=== PATIENT | male | born 2000 | race Caucasian/White ===

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

== ENCOUNTER 2023-12-14 09:55 | Inpatient (IN) | payer BC, OTHER ==
[~2023-12-14] VITALS: Ht 195.6 cm; Wt 80.0 kg
[~2023-12-14 09:55] MED LIST changes: +AZIT-12 PO; -E-Z-GAS II EFFERVESCENT PACKET (SODIUM BICARB./CITRIC ACID/SIMETHICONE) As Ordered; -E-Z-HD 98% w/w 340GM SUSP BTL As Ordered; -E-Z-PAQUE 96% w/w SUSP 176GM BTL As Ordered; +MOTR200T44 PO; +REGL10TA6 PO; +ZOFR8TAB22 PO; +[UNRECOGNIZED DRUG - OTHER] PO
[2023-12-14 10:53] LABS: BASO # 0.1 10^3/uL (0.0-0.2); BASO % 0.7 % (0.0-1.0); EOS # 0.1 10^3/uL (0.0-0.5); EOS % 1.2 % (0.0-3.0); HEMATOCRIT 39.2 % (42.0-52.0); HEMOGLOBIN 12.7 g/dl (13.5-17.5); LYMPH # 1.2 10^3/uL (1.5-5.0); MEAN CORPUSCULAR HEMOGLOBIN 28.4 pg (27.0-33.0); MEAN CORPUSCULAR HGB CONC 32.4 g/dl (32.0-36.5); MEAN CORPUSCULAR VOLUME 87.7 fl (80.0-96.0); MONO # 0.6 10^3/uL (0.0-0.8); MONO % 9.1 % (2.0-8.0); NEUTROPHILS # 4.9 10^3/uL (1.5-8.5); NEUTROPHILS % 70.7 % (36.0-66.0); PLATELET COUNT, AUTOMATED 196 10^3/uL (150-450); RED BLOOD COUNT 4.47 10^6/uL (4.30-6.10); WHITE BLOOD COUNT 6.9 10^3/uL (4.0-10.0)
[2023-12-14 11:21] LABS: CK-MB VALUE MASS < 1.0 NG/ML (<3.6)
[2023-12-14 11:22] LABS: LIPASE 38 U/L (12-53)
[2023-12-14 11:24] LABS: CPK CREATINE PHOSPHOKINASE 127 U/L (46-171); MB/CK RELATIVE INDEX 0.78 (< OR =4)
[2023-12-14 11:25] LABS: ALBUMIN 3.7 G/DL (3.2-5.2); ALKALINE PHOSPHATASE 67 U/L (46-116); ALT/SGPT 57 U/L (7.0-40); AST/SGOT 38 U/L (<34); BILIRUBIN,DIRECT 0.2 MG/DL (<0.4); BILIRUBIN,TOTAL 0.4 MG/DL (0.3-1.2); BLOOD UREA NITROGEN 7 MG/DL (9-23); CALCIUM LEVEL 8.7 MG/DL (8.5-10.1); CARBON DIOXIDE LEVEL 30 MMOL/L (20-31); CHLORIDE LEVEL 109 MMOL/L (98-107); CREATININE FOR GFR 0.63 MG/DL (0.70-1.30); GLOMERULAR FILTRATION RATE > 60.0 (>60); GLUCOSE, FASTING 89 MG/DL (60-100); POTASSIUM SERUM 4.3 MMOL/L (3.5-5.1); SODIUM LEVEL 142 MMOL/L (136-145); THYROID STIMULATING HORMONE 0.941 uIU/ML (0.55-4.78); TOTAL PROTEIN 6.3 G/DL (5.7-8.2)
[2023-12-14 11:26] LABS: FREE T4 0.89 NG/DL (0.89-1.76)
[2023-12-14] MEDS: KETOROLAC 30 MG/ML 1ML VIAL IV ONE (12:17)
[2023-12-14] MEDS ORDERED: BISACODYL 10MG SUPP PR PRN (12:40)
[2023-12-14] MEDS ORDERED: ONDANSETRON 4MG 2ML VIAL IV PRN (12:40)
[2023-12-14] MEDS ORDERED: PERCOCET 5MG/325MG TAB PO PRN ×2 (12:40)
[2023-12-14] MEDS ORDERED: LEVALBUTEROL 1.25MG 0.5ML CONCENTRATE NEB NEB PRN (12:40)
[2023-12-14] MEDS ORDERED: ACETAMINOPHEN TAB 650MG DOSE (2X325MG) PO PRN (12:40)
[2023-12-14 13:06] LABS: CK-MB VALUE MASS < 1.0 NG/ML (<3.6)
[2023-12-14 13:09] LABS: CPK CREATINE PHOSPHOKINASE 107 U/L (46-171); MB/CK RELATIVE INDEX 0.93 (< OR =4)
[2023-12-14] MEDS ORDERED: MIDAZOLAM INJ 2MG/2ML VIAL IV STA (13:14)
[2023-12-14] MEDS ORDERED: flumazeniL 0.5MG/5ML VIAL IV STA (13:14)
[2023-12-14] MEDS ORDERED: LIDOCAINE 1% MDV 20ML VIAL SC STA (13:14)
[2023-12-14] MEDS ORDERED: HOME MED LIST COMPLETE! XX SCH (13:30)
[2023-12-14] MEDS: KCL 20MEQ IN D5/NS 1000ML 1,000 ML IV SCH (13:30)
[2023-12-14 14:31] VITALS: BP 128/58; TEMP 97.7; O2SAT 100
[2023-12-14] MEDS: LEVALBUTEROL 1.25MG 0.5ML CONCENTRATE NEB NEB SCH (14:36)
[2023-12-14 15:31] VITALS: BP 121/60; TEMP 97.2; O2SAT 100
[2023-12-14] MEDS: KETOROLAC 30 MG/ML 1ML VIAL IV SCH (18:00)
[2023-12-14 19:16] VITALS: BP 118/64; TEMP 98; O2SAT 100
[2023-12-14] MEDS: DOCUSATE SODIUM 100MG CAPSULE PO SCH (21:00)
[2023-12-14] MEDS: HEPARIN SOD (PORCINE) 5000UNITS/ML 1ML VIAL/SYRINGE SC SCH (21:00)
[2023-12-14 23:20] VITALS: BP 121/59; TEMP 97.9; O2SAT 100
[2023-12-15 03:22] VITALS: BP 120/56; TEMP 97.5; O2SAT 100
[2023-12-15 06:07] LABS: BASO % 0.4 % (0.0-1.0); EOS # 0.1 10^3/uL (0.0-0.5); EOS % 1.8 % (0.0-3.0); HEMATOCRIT 37.5 % (42.0-52.0); HEMOGLOBIN 12.1 g/dl (13.5-17.5); LYMPH # 2.1 10^3/uL (1.5-5.0); LYMPH % 38.2 % (24.0-44.0); MEAN CORPUSCULAR HEMOGLOBIN 28.3 pg (27.0-33.0); MEAN CORPUSCULAR HGB CONC 32.3 g/dl (32.0-36.5); MEAN CORPUSCULAR VOLUME 87.8 fl (80.0-96.0); MONO # 0.7 10^3/uL (0.0-0.8); MONO % 11.9 % (2.0-8.0); NEUTROPHILS # 2.6 10^3/uL (1.5-8.5); NEUTROPHILS % 47.5 % (36.0-66.0); PLATELET COUNT, AUTOMATED 179 10^3/uL (150-450); RED BLOOD COUNT 4.27 10^6/uL (4.30-6.10); WHITE BLOOD COUNT 5.5 10^3/uL (4.0-10.0)
[2023-12-15 06:39] LABS: BLOOD UREA NITROGEN 7 MG/DL (9-23); CALCIUM LEVEL 8.9 MG/DL (8.5-10.1); CARBON DIOXIDE LEVEL 29 MMOL/L (20-31); CHLORIDE LEVEL 109 MMOL/L (98-107); CREATININE FOR GFR 0.64 MG/DL (0.70-1.30); GLOMERULAR FILTRATION RATE > 60.0 (>60); GLUCOSE, FASTING 98 MG/DL (60-100); POTASSIUM SERUM 4.7 MMOL/L (3.5-5.1); SODIUM LEVEL 142 MMOL/L (136-145)
[2023-12-15 07:31] VITALS: BP 119/60; TEMP 97.8; O2SAT 100
[2023-12-15] MEDS: MOM 30ML SUSPENSION UDC PO SCH (08:58)
[2023-12-15] MEDS: PANTOPRAZOLE 40MG TAB (PROTONIX) PO SCH (08:58)
[2023-12-15 11:33] VITALS: BP 114/57; TEMP 97.6; O2SAT 100
== END 2023-12-15 12:20 | disposition home or self-care (01) | DRG 143 ==
LOC: M ED 09:55 → M ED INP 12:38 → M PCU 14:14
PROVIDERS: ADMIT Internal Medicine Nephrology; ATTEND Internal Medicine Nephrology
DX: J93.83 Other pneumothorax (principal); M41.9 Scoliosis, unspecified; Z88.0 Allergy status to penicillin; F17.200 Nicotine dependence, unspecified, uncomplicated; F12.90 Cannabis use, unspecified, uncomplicated

== ENCOUNTER → 2023-12-25 | Outpatient (CLI) | payer BC, OTHER | LOC: M ADAMS 10:51 | PROVIDERS: ATTEND Thoracic Surgery (Cardiothoracic Vascular Surgery) | DX: J93.83 Other pneumothorax (principal) ==

== ENCOUNTER → 2024-01-23 | Outpatient (CLI) | payer BC | LOC: M PLAIMG 09:15 | PROVIDERS: ATTEND Internal Medicine Critical Care Medicine | DX: J93.9 Pneumothorax, unspecified (principal) ==